=== PATIENT | female | born 1985 | race Hispanic/Latino ===

== ENCOUNTER 2018-03-21 17:32 | Emergency (ER) | payer OTHER ==
[2018-03-21 19:10] LABS: Bilirubin,Urine NEG (Negative); Blood,Urine NEG (Negative); Color,Urine Straw (Yellow); Protein,Urine <15 mg/dL mg/dL (Negative); Urobilinogen,Urine < 2.0 mg/dL (<2.0)
[2018-03-21 19:37] LABS: Amphetamine Screen,Urine PRESUMPTIVE NEGATIVE; Benzodiazepines Screen,Urine PRESUMPTIVE NEGATIVE; Cocaine Screen,Urine PRESUMPTIVE NEGATIVE; Methadone Screen,Urine PRESUMPTIVE NEGATIVE; Opiate Screen,Urine PRESUMPTIVE NEGATIVE
[2018-03-21 20:15] LABS: Cannabinoid Screen,Urine PRESUMPTIVE POSITIVE
[2018-03-21 20:48] LABS: Alanine Aminotransferase 7 units/L (7-56)
[2018-03-21 20:55] LABS: Bilirubin,Direct < 0.2 mg/dL (0-0.2)
[2018-03-21 21:02] VITALS: BP 103/59
== END 2018-03-21 23:42 | disposition left against medical advice (07) ==
LOC: TRG 17:32 → EDSTATUS 21:30 → TRG 22:15
DX: R10.9 Unspecified abdominal pain (principal); Z53.21 Procedure and treatment not carried out due to patient leaving prior to being seen by health care provider
CPT/HCPCS: 36415; 59025; 80074; 80307; 81001